=== PATIENT | female | born 1990 | race African-American/Black ===

== ENCOUNTER 2018-04-16 19:49 | Emergency (ER) | payer SELFPAY ==
[2018-04-16 20:30] VITALS: BP 126/75; PULSE 67; RESP 15; TEMP 98.1; O2SAT 98
--- NOTE | 2018-04-16 21:01 | PD ---
HPI Chief Complaint: Abdominal Pain Time Seen by Provider: 20:50 Travel History International Travel<30 days: No Contact w/Intl Traveler<30days: No Traveled to known affect area: No History of Present Illness HPI 27-year-old female here for evaluation of right lower back pain radiating to right lower quadrant as well as epigastric pain. Symptoms have been going on for about 2 days. She describes the symptoms as sharp, intermittent. No history of abdominal surgeries. She is having light vaginal spotting as well as some thick vaginal discharge. Urine test was performed in triage and is positive. She denies nausea or vomiting. No history of abdominal surgeries. No urinary symptoms other than increased urinary frequency. She tells me that she has 2 children at home and does not want to keep this . Her last menstrual period was 03/05/18. [facility] Past Medical History Immunizations Current: Yes Tetanus Vaccination: Unknown Influenza Vaccination: No ?: Unknown LMP: 03/05/2018 Social History Alcohol Use: No Tobacco Use: No Substance Use: No Allergies-Medications (Allergen,Severity, Reaction): Coded Allergies: No Known Allergies (Unverified , 04/16/18) Reported Meds & Prescriptions Reported Meds & Active Scripts Active No Active Prescriptions or Reported Medications Review of Systems Except as stated in HPI: all other systems reviewed are Neg Physical Exam Narrative GENERAL: Well-developed, well-nourished, awake, alert, no apparent distress. SKIN: Focused skin assessment warm/dry. HEAD: Atraumatic. Normocephalic. EYES: Pupils equal and round. No scleral icterus. No injection or drainage. ENT: Mucous membranes pink and moist. NECK: Trachea midline. No JVD. CARDIOVASCULAR: Regular rate and rhythm. No murmur appreciated. RESPIRATORY: No accessory muscle use. Clear to auscultation. Breath sounds equal bilaterally. GASTROINTESTINAL: Abdomen soft, nondistended. Mild suprapubic tenderness without peritoneal signs. Mild epigastric tenderness without peritoneal signs. Rest of her abdomen is soft and nontender. Normal bowel sounds. CLAIM SERVICE REPRESENTATIVE: Exam performed in the presence of a female nurse. Normal external genitalia. Moderate mucopurulent/foul-smelling vaginal discharge. No vaginal bleeding. Cervical os closed. MUSCULOSKELETAL: No obvious deformities. No clubbing. No cyanosis. No edema. No CVA tenderness. NEUROLOGICAL: Awake and alert. No obvious cranial nerve deficits. Motor grossly within normal limits. Normal speech. PSYCHIATRIC: Appropriate mood and affect; insight and judgment normal. Data Data Last Documented VS Vital Signs Date Time Temp Pulse Resp B/P (MAP) Pulse Ox O2 Delivery O2 Flow Rate FiO2 04/16/18 20:30 98.1 67 15 126/75 (92) 98 Orders Orders Beta Hcg (Quant/Titer) (04/16/18 20:56) Complete Blood Count With Diff (04/16/18 20:56) Comprehensive Metabolic Panel (04/16/18 20:56) Gc And Chlamydia Pcr (04/16/18 20:56) Type And Screen (04/16/18 20:56) Wet Prep Profile (04/16/18 20:56) Urinalysis - C+S If Indicated (04/16/18 20:56) Lipase (04/16/18 20:56) Us Abdomen Gallbladder (04/16/18 ) Urine Culture (04/16/18 21:20) Ceftriaxone Inj (Rocephin Inj) (04/16/18 22:00) Ed Urine Pregnancytest Poc (04/16/18 22:21) Azithromycin (Zithromax) (04/16/18 22:45) Us Pelvis (Ques Pr/Ect)W Trans (04/16/18 ) Labs Laboratory Tests Test 04/16/18 21:20 04/16/18 22:30 White Blood Count 13.5 TH/MM3 Red Blood Count 4.75 MIL/MM3 Hemoglobin 13.5 GM/DL Hematocrit 40.0 % Mean Corpuscular Volume 84.3 FL Mean Corpuscular Hemoglobin 28.4 PG Mean Corpuscular Hemoglobin Concent 33.7 % Red Cell Distribution Width 13.3 % Platelet Count 294 TH/MM3 Mean Platelet Volume 8.2 FL Neutrophils (%) (Auto) 63.8 % Lymphocytes (%) (Auto) 27.2 % Monocytes (%) (Auto) 6.7 % Eosinophils (%) (Auto) 1.7 % Basophils (%) (Auto) 0.6 % Neutrophils # (Auto) 8.6 TH/MM3 Lymphocytes # (Auto) 3.7 TH/MM3 Monocytes # (Auto) 0.9 TH/MM3 Eosinophils # (Auto) 0.2 TH/MM3 Basophils # (Auto) 0.1 TH/MM3 CBC Comment DIFF FINAL Differential Comment Urine Color YELLOW Urine Turbidity CLOUDY Urine pH 6.0 Urine Specific [place] 1.015 Urine Protein 30 mg/dL Urine Glucose (UA) NEG mg/dL Urine Ketones NEG mg/dL Urine Occult Blood SMALL Urine Nitrite NEG Urine Bilirubin NEG Urine Urobilinogen 0.2 MG/DL Urine Leukocyte Esterase LARGE Urine RBC 65 /hpf Urine WBC 121 /hpf Urine Squamous Epithelial Cells 99 /hpf Urine Amorphous Sediment RARE Urine Bacteria MOD /hpf Urine Mucus FEW /lpf Microscopic Urinalysis Comment CULTURE INDICATED Blood Urea Nitrogen 7 MG/DL Creatinine 0.78 MG/DL Random Glucose 82 MG/DL Total Protein 7.8 GM/DL Albumin 3.5 GM/DL Calcium Level 8.7 MG/DL Alkaline Phosphatase 45 U/L Aspartate Amino Transf (AST/SGOT) 17 U/L Alanine Aminotransferase (ALT/SGPT) 19 U/L Total Bilirubin 0.2 MG/DL Sodium Level 137 MEQ/L Potassium Level 3.9 MEQ/L Chloride Level 104 MEQ/L Carbon Dioxide Level 26.2 MEQ/L Anion Gap 7 MEQ/L Estimat Glomerular Filtration Rate 108 ML/MIN Lipase 111 U/L Human Chorionic Gonadotropin, Quant 20923 MIU/ML Clue Cells (Wet Prep) NONE SEEN Vaginal Trichomonas (Wet Prep) NONE SEEN Vaginal Yeast (Wet Prep) NONE SEEN MDM Medical Decision Making Medical Screen Exam Complete: Yes Emergency Medical Condition: Yes Differential Diagnosis Ectopic , , gastritis, peptic ulcer disease, pancreatitis, hepatobiliary disease, appendicitis less likely, ovarian cyst, UTI, cystitis Narrative Course Vital signs show heart rate 67, blood pressure 126/75, pulse ox 98% on room air , oral temp of 98.1F. CBC: WBC 13.5, hemoglobin 13.5, hematocrit 40, platelets 294. CMP is unremarkable. Lipase is 111. UA: 30 protein, 65 RBCs, 121 WBCs, moderate bacteria, few mucus. Beta-hCG is 54,329. Wet prep is negative. The patient was given 1 g of IV Rocephin for her UA findings and was also given 1 g of oral azithromycin for empiric coverage for gonorrhea and chlamydia. Right upper quadrant ultrasound: CONCLUSION: Unremarkable exam. The gallbladder is within normal limits with no evidence of cholelithiasis. Pelvic ultrasound: CONCLUSION: 1. Single early intrauterine corresponding to 7 weeks zero day menstrual age. 2. Trace free fluid in the cul-de-sac. Patient was made aware of all findings. On reassessment she is eating fried chicken. She is overall very well-appearing. There are no peritoneal signs on her abdominal exam. I do not believe she has an acute appendicitis or any other acute intra-abdominal/pelvic process. She was empirically treated for gonorrhea and chlamydia with Rocephin and azithromycin. I told her to make sure she follows up with the results of this and have all sexual partners tested and treated. She tells me that she is from [place] and will be returning there next month. She does not want to keep this . She states that she will seek out clinics. I will give her the information to our women's care in our clinic should she decide to keep the . She will be discharged home with a prescription for Keflex for her UTI. She is stable for discharge home with outpatient follow-up. She was advised on when to return to the emergency department. She verbalizes understanding and agreement with plan. Diagnosis Primary Impression: Abdominal pain affecting Additional Impression: UTI in Qualified Codes: O23.41 - Unspecified infection of urinary tract in , first trimester Referrals: [facility] 3 days Additional Instructions: Follow-up with an REFRIGERATOR REPAIRMAN physician this week. Take antibiotic as prescribed. Return to the emergency department for worsening symptoms or any other concerns. Scripts Famotidine (Pepcid) 40 Mg Tab 40 MG PO HS, #30 TAB 0 Refills Prov: Yariel Schmitt MD 04/16/18 Cephalexin (Keflex) 500 Mg Capsule 500 MG PO BID for Infection for 7 Days, #14 CAP 0 Refills Prov: Yariel Schmitt MD 04/16/18 Disposition: 01 DISCHARGE HOME Condition: Stable Yariel Schmitt MD April 16, 2018 21:01
[2018-04-16 21:40] LABS: BILIRUBIN, URINE NEG (NEG); BLOOD, URINE SMALL (NEG); GLUCOSE,URINE NEG (NEG); KETONE, URINE NEG (NEG); NITRITE,URINE NEG (NEG); URINE COLOR YELLOW (YELLW/STRAW); URINE LEUKOCYTE ESTERASE LARGE (NEG)
[2018-04-16 21:42] LABS: AUTOMATED NEUTROPHIL # 8.6 TH/MM3 (1.8-7.7); BASOPHIL # 0.1 TH/MM3 (0-0.2); BASOPHIL % 0.6 % (0.0-2.0); EOSINOPHIL # 0.2 TH/MM3 (0-0.4); EOSINOPHIL % 1.7 % (0.0-4.0); HEMOGLOBIN 13.5 GM/DL (11.6-15.3); LYMPH % 27.2 % (9.0-44.0); LYMPHOCYTE # 3.7 TH/MM3 (1.0-4.8); MEAN CELL VOLUME 84.3 FL (80.0-100.0); MEAN CORPUSCULAR HEMOGLOBIN 28.4 PG (27.0-34.0); MEAN CORPUSCULAR HGB CONC 33.7 % (32.0-36.0); MEAN PLATELET VOLUME 8.2 FL (7.0-11.0); MONO % 6.7 % (0.0-8.0); MONOCYTE # 0.9 TH/MM3 (0-0.9); NEUT % 63.8 % (16.0-70.0); PLATELET COUNT 294 TH/MM3 (150-450); RED BLOOD COUNT 4.75 MIL/MM3 (4.00-5.30); RED CELL DISTRIBUTION WIDTH 13.3 % (11.6-17.2); WHITE BLOOD COUNT 13.5 TH/MM3 (4.0-11.0)
[2018-04-16 21:50] LABS: AMORPHOUS SEDIMENT, URINE RARE; BACTERIA, URINE MOD /hpf; MUCUS URINE FEW /lpf (OCC); SQUAMOUS EPITHELIAL CELL URINE 99 /hpf (0-5)
[2018-04-16] MEDS ORDERED: cefTRIAXone INJ 1,000 MG in SODIUM CHLORIDE 0.9% INJ 100 ML IV ONE (22:00)
[2018-04-16 22:01] LABS: ALBUMIN 3.5 GM/DL (3.4-5.0); AST (GOT) 17 U/L (15-37); BLOOD UREA NITROGEN 7 MG/DL (7-18); CHLORIDE 104 MEQ/L (98-107); CREATININE 0.78 MG/DL (0.50-1.00); GLOMERULAR FILTRATION RATE 108 ML/MIN (>89); SODIUM (NA) 137 MEQ/L (136-145)
[2018-04-16 22:25] LABS: ALKALINE PHOSPHATASE 45 U/L (45-117); ALT (GPT) 19 U/L (10-53); BICARBONATE 26.2 MEQ/L (21.0-32.0); CALCIUM 8.7 MG/DL (8.5-10.1); GLUCOSE,RANDOM 82 MG/DL (74-106); TOTAL BILIRUBIN ADULT 0.2 MG/DL (0.2-1.0); TOTAL PROTEIN 7.8 GM/DL (6.4-8.2)
[2018-04-16] MEDS ORDERED: AZITHROMYCIN 250 MG TAB PO ONE (22:45)
--- NOTE | 2018-04-16 23:06 | RADRPT ---
EXAM DATE/TIME: 04/16/2018 22:25 [facility] COMPARISON: No previous studies available for comparison. INDICATIONS : Right upper quadrant pain. MEDICAL HISTORY : Pelvic pain. Right upper quadrant pain. SURGICAL HISTORY : None. ENCOUNTER: Initial ACUITY: 2 days PAIN SCORE: 3/10 LOCATION: Right upper quadrant MEASUREMENTS: LIVER: 16.7 cm length COMMON DUCT: 3 mm RIGHT KIDNEY: 10.9 x 4.5 x 4.3 cm FINDINGS: LIVER: Normal echotexture without focal lesion or ductal dilatation. COMMON DUCT: No intraluminal mass or stone visualized. GALLBLADDER: Contains no stones, demonstrates no wall thickening or pericholecystic fluid. PANCREAS: The visualized portions are within normal limits. RIGHT KIDNEY: No evidence of hydronephrosis, stone, or mass. CONCLUSION: Unremarkable exam. The gallbladder is within normal limits with no evidence of cholel ithiasis. Richard Velez MD on April 16, 2018 at 23:04 Board Certified Radiologist. This report was verified electronically.
--- NOTE | 2018-04-16 23:20 | RADRPT ---
EXAM DATE/TIME: 04/16/2018 22:35 [facility] COMPARISON: No previous studies available for comparison. INDICATIONS : Pelvic pain. LAB(S): [facility] MEDICAL HISTORY : Pelvic pain. Right upper quadrant pain. SURGICAL HISTORY : None. ENCOUNTER: Initial ACUITY: 4-6 days PAIN SCORE: 2/10 LOCATION: Bilateral pelvis MEASUREMENTS: UTERUS: 10.2 x 7.3 x 5.8 cm ENDOMETRIAL STRIPE: 13 mm RIGHT OVARY: 3.6 x 2.3 x 1.9 cm LEFT OVARY: 2.7 x 1.8 x 1.5 cm FREE FLUID: Yes trace in cul de sac. CROWN RUMP LENGTH: 0.8 = 6 WKS 5 DAYS FHR: 142 BPM FINDINGS: UTERUS: There is a single early intrauterine with a small pole with a crown-rump length corre sponding to a 7 week zero day menstrual age. heart rate of 142 beats per minute was obtained. RIGHT OVARY: Ovary contains no mass or significant cystic lesion. LEFT OVARY: Ovary contains no mass or significant cystic lesion. MISCELLANEOUS: Trace fluid in the cul-de-sac. CONCLUSION: 1. Single early intrauterine corresponding to 7 weeks zero day menstrual age. 2. Trace free fluid in the cul-de-sac. Richard Velez MD on April 16, 2018 at 23:17 Board Certified Radiologist. This report was verified electronically.
[2018-04-16] MEDS ORDERED: FAMO1TAB73 PO (23:41)
[2018-04-16] MEDS ORDERED: CEPH-460 PO (23:41)
== END 2018-04-16 23:52 | disposition home or self-care (01) ==
LOC: NEPD 19:49
DX: O23.41 Unspecified infection of urinary tract in pregnancy, first trimester (principal); Z3A.01 Less than 8 weeks gestation of pregnancy
CPT/HCPCS: 76700; 76705; 76817; 80053; 81001; 83690; 84702; 84703; 85025; 86850; 86900; 86901; 87086; 87210; 87491; 87591; 96374; 99285; J0696